=== PATIENT | male | born 1960 | race Caucasian/White ===

== ENCOUNTER → 2016-10-26 | Day surgery (SDC) | payer BC ==
[~2016-10-26] MED LIST: NO MEDICATIONS
--- NOTE | ~2016-10-26 | OR ---
Unit #: [id number] #: [id number] Patient: MARTIN FUENTES [id number] [address] [place], [place] [address] [id number] O MR#: [id number] NAME: MARTIN FUENTES ROOM: Date of Procedure: 10/26/2016 Admission Date: 10/26/2016 Surgeon: Fabian Velázquez M.D. : 1960 Attending Physician: Fabian Velázquez M.D. OPERATIVE REPORT PREOPERATIVE DIAGNOSIS Screening colonoscopy. POSTOPERATIVE DIAGNOSIS Screening colonoscopy. PROCEDURE PERFORMED Colonoscopy to cecum. ANESTHESIA Monitored anesthesia care. FINDINGS The patient was found to have sigmoid diverticula and [id number] internal hemorrhoids. SPECIMENS None. COMPLICATIONS None apparent. CONDITION The patient tolerated the procedure well. INDICATIONS FOR PROCEDURE The patient is a 56-year-old white male, who has never had a colonoscopy. He presents at this time for screening colonoscopy. DESCRIPTION OF PROCEDURE After obtaining informed consent, the patient was brought to the endoscopy suite. After adequate monitored anesthesia care, had the colonoscope placed through the anus and advanced to the level of the cecum without difficulty with the lumen always in view. The cecum was normal as was the ileocecal valve. The ascending colon was normal as was the hepatic flexure, transverse colon, splenic flexure, and descending colon. In the sigmoid colon, there were few scattered diverticula present. The rectosigmoid and rectum were all within normal limits. On retroflexing in the rectum to the anorectal junction, the patient was found to have some [id number] internal hemorrhoids. The scope was removed without difficulty. The patient tolerated the procedure well and went from the Unit #: [id number] #: [id number] Patient: MARTIN FUENTES endoscopy suite to the recovery area in stable condition. RECOMMENDATIONS Diverticular sheet given. High-fiber diet, lots of liquids, tucks or wipes p.r.n. Follow up in our office as needed. Dictated by... Curt Alberts/brian TD: 10/27/2016 03:01 JOB #: [id number] CC: [facility] Jose Esquivel M.D. OPERATIVE REPORT Page 1 of 1 X Fabian Velázquez MD PROCEDURE OPERATIVE NOTE
== END | disposition home or self-care (01) ==
LOC: COPS 10:29
DX: Z12.11 Encounter for screening for malignant neoplasm of colon (principal); K57.30 Diverticulosis of large intestine without perforation or abscess without bleeding; K64.8 Other hemorrhoids; F17.210 Nicotine dependence, cigarettes, uncomplicated; M19.90 Unspecified osteoarthritis, unspecified site; Z80.1 Family history of malignant neoplasm of trachea, bronchus and lung
CPT/HCPCS: J2250